=== PATIENT | female | born 1960 | race Caucasian/White ===

== ENCOUNTER 2016-08-03 15:52 | Emergency (ER) | payer OTHER ==
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
--- NOTE | 2016-08-03 16:31 | ED ORDER SUMMARY ---
..... Patient: COMFORT BLAKE OrderSheet [facility] VisitID: [id number] [address] [place] [address] 55y, F Registration Date/Time: 08/03/2016 ORDER SHEET Weight: 68.9 kg (stated) Allergies: No Known Drug Allergy GENERAL ORDERS: CT Head wo Cont Urgent (15:57 08/03/2016 HBivens A.R.N.P.) (Ack 16:11 TBersergey) (16:19 [facility]) MEDICATION ORDERS: IV FLUIDS: ORDER SHEET NOTES: [Electronically signed by Roxie MatamorosR.N.PNazia (17:04 08/03/2016)] [Electronically signed by Elijah Bailon R.N. (21:49 08/03/2016)] [Electronically locked/signed by Elijah Bailon R.N. (21:49 08/03/2016)]
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
--- NOTE | 2016-08-03 16:31 | ED ORDER SUMMARY ---
..... Patient: COMFORT BLAKE OrderSheet [facility] VisitID: [id number] [address] [place] [address] 55y, F Registration Date/Time: 08/03/2016 ORDER SHEET Weight: 68.9 kg (stated) Allergies: No Known Drug Allergy GENERAL ORDERS: CT Head wo Cont Urgent (15:57 08/03/2016 HBivens A.R.N.P.) (Ack 16:11 TBersergey) (16:19 [facility]) MEDICATION ORDERS: IV FLUIDS: ORDER SHEET NOTES: [Electronically signed by Roxie MatamorosR.N.PNazia (17:04 08/03/2016)] [Electronically signed by Elijah Bailon R.N. (21:49 08/03/2016)] [Electronically locked/signed by Elijah Bailon R.N. (21:49 08/03/2016)]
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
--- NOTE | 2016-08-03 21:50 | ED MAR SUMMARY ---
..... Medication Administration Record [facility] [address] [place] [address] Patient: COMFORT BLAKE Visit ID: [id number] 55y, F Weight: 68.9 kg Height/Length: 65 in BMI: 25.3 ALLERGIES: No Known Drug Allergy
--- NOTE | 2016-08-03 21:50 | ED MED RECONCILIATION SUMMARY ---
Patient: COMFORT BLAKE Medication Reconciliation Report [facility] VisitID: [id number] [address] [place] [address] 55y, F Registration Date/Time: 08/03/2016 Weight: 68.9 kg Height/Length: 65 in. BMI: 25.3 ALLERGIES: No Known Drug Allergy The patient's Home Medications are listed below: THE FOLLOWING MEDICATIONS NEED TO BE RECONCILED: Thyroid Hormone The source(s) of the original Home Medication information: Not obtained. The following Medications were given to the patient in the Emergency Department: None. The following Medications were prescribed to the patient: Flexeril 10 mg: Take 1 orally every 8 hours as needed for muscle spasm. Dispense twenty (20). No refills. Substitution is permissible. -- Roxie Matamoros, Heather.R.N.P. Ultram 50 mg tablets: take 1-2 orally every 6 hours as needed for pain. Dispense twenty (20). No refills. Substitution is permissible. -- Roxie Matamoros A.R.N.P.
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
--- NOTE | 2016-08-03 21:50 | ED MED RECONCILIATION SUMMARY ---
Patient: COMFORT BALKE Medication Reconciliation Report [facility] VisitID: [id number] [address] [place] [address] 55y, F Registration Date/Time: 08/03/2016 Weight: 68.9 kg Height/Length: 65 in. BMI: 25.3 ALLERGIES: No Known Drug Allergy The patient's Home Medications are listed below: THE FOLLOWING MEDICATIONS NEED TO BE RECONCILED: Thyroid Hormone The source(s) of the original Home Medication information: Not obtained. The following Medications were given to the patient in the Emergency Department: None. The following Medications were prescribed to the patient: Flexeril 10 mg: Take 1 orally every 8 hours as needed for muscle spasm. Dispense twenty (20). No refills. Substitution is permissible. -- Roxie Matamoros, Heather.R.N.P. Ultram 50 mg tablets: take 1-2 orally every 6 hours as needed for pain. Dispense twenty (20). No refills. Substitution is permissible. -- Roxie Matamoros A.R.N.P.
--- NOTE | 2016-08-03 21:50 | ED MAR SUMMARY ---
..... Medication Administration Record [facility] [address] [place] [address] Patient: COMFORT BLAKE Visit ID: [id number] 55y, F Weight: 68.9 kg Height/Length: 65 in BMI: 25.3 ALLERGIES: No Known Drug Allergy
== END 2016-08-03 16:45 | disposition home or self-care (01) ==
LOC: ED SRH 15:52
DX: M79.1 Myalgia (principal); V43.53XA Car driver injured in collision with pick-up truck in traffic accident, initial encounter; Y93.I9 Activity, other involving external motion; Y92.410 Unspecified street and highway as the place of occurrence of the external cause; Y99.9 Unspecified external cause status